=== PATIENT | male | born 1950 | race Caucasian/White ===

== ENCOUNTER → 2024-02-29 06:33 | Day surgery (SDC) | payer OTHER, SELFPAY | LOC: GI 06:33 | PROVIDERS: ATTENDING PHYSICIAN Internal Medicine Gastroenterology | DX: K29.50 Unspecified chronic gastritis without bleeding (principal); K31.A0 Gastric intestinal metaplasia, unspecified; K44.9 Diaphragmatic hernia without obstruction or gangrene; K31.89 Other diseases of stomach and duodenum; R93.3 Abnormal findings on diagnostic imaging of other parts of digestive tract; Z85.028 Personal history of other malignant neoplasm of stomach | CPT/HCPCS: 43239; 88305; 88342 ==

== ENCOUNTER 2025-04-04 06:20 | Day surgery (SDC) | payer OTHER, SELFPAY | END 2025-04-04 12:26 | disposition home or self-care (01) | LOC: GI 06:20 | PROVIDERS: ATTENDING PHYSICIAN Internal Medicine Gastroenterology | DX: Z85.028 Personal history of other malignant neoplasm of stomach (principal); K29.50 Unspecified chronic gastritis without bleeding; K31.A0 Gastric intestinal metaplasia, unspecified | CPT/HCPCS: 43239; 88305; 88342 ==